=== PATIENT | female | born 1970 | race African-American/Black ===

== ENCOUNTER → 2020-01-29 13:39 | Outpatient (CLI) | payer BC, SELFPAY ==
--- NOTE | ~2020-01-29 | MM_ITS ---
EXAMINATION: MM screening [facility] BI w angelica HISTORY: Screening mammogram TECHNIQUE: Craniocaudal and mediolateral oblique 3-D tomosynthesis images were obtained and synthetic 2-D images were generated. CAD analysis was submitted and interpreted. COMPARISON: 01/19/2019, 01/20/2018, 07/29/2017 BREAST PARENCHYMAL COMPOSITION: There are scattered areas of fibroglandular density. FINDINGS: There is no evidence of suspicious mass, calcification, or architectural distortion to sugg est malignancy in either breast. There has been no suspicious interval change. IMPRESSION: 1. No mammographic evidence of malignancy. 2. Recommend routine screening mammography in one year. BI-RADS Category 1: Negative Reviewed, dictated and finalized at location A. ERLESS GRINDING MACHINE ADJUSTER
== END ==
PROVIDERS: Visit Provider Nurse Practitioner
DX: Z12.31 Encounter for screening mammogram for malignant neoplasm of breast (principal)
CPT/HCPCS: 77063; 77067

== ENCOUNTER → 2021-03-27 13:08 | Outpatient (CLI) | payer BC, SELFPAY ==
--- NOTE | ~2021-03-27 | MM_ITS ---
EXAMINATION: MM screening [facility] BI w angelica HISTORY: Screening TECHNIQUE: Craniocaudal and mediolateral oblique 3-D tomosynthesis images were obtained and synthetic 2-D images were generated. CAD analysis was submitted and interpreted. COMPARISON: Comparison to multiple prior studies sequentially, with oldest reviewed study dated 12/10. BREAST PARENCHYMAL COMPOSITION: Breast composed of scattered areas of fibroglandular density FINDINGS: There is no evidence of suspicious mass, calcification, or architectural distortion to sugg est malignancy in either breast. There has been no suspicious interval change. IMPRESSION: 1. No mammographic evidence of malignancy. 2. Recommend routine screening mammography in one year. BI-RADS Category 1: Negative Reviewed, dictated and finalized at location B. VIORAL HEALTH PROFESSIONAL
== END ==
PROVIDERS: Visit Provider Obstetrics & Gynecology Gynecology
DX: Z12.31 Encounter for screening mammogram for malignant neoplasm of breast (principal)
CPT/HCPCS: 77063; 77067

== ENCOUNTER → 2022-04-03 14:47 | Outpatient (CLI) | payer BC, SELFPAY ==
--- NOTE | ~2022-04-03 | MM_ITS ---
EXAMINATION: MM screening [facility] BI w angelica HISTORY: Screening mammogram TECHNIQUE: Craniocaudal and mediolateral oblique 3-D tomosynthesis images were obtained and synthetic 2-D images were generated. CAD analysis was submitted and interpreted. COMPARISON: 03/27/2021, 01/29/2020, 01/19/2019 bilateral screening mammogram examinations BREAST PARENCHYMAL COMPOSITION: There are scattered areas of fibroglandular density. FINDINGS: There is no evidence of suspicious mass, calcification, or architectural distortion to sugg est malignancy in either breast. There has been no suspicious interval change. IMPRESSION: 1. No mammographic evidence of malignancy. 2. Recommend routine screening mammography in one year. BI-RADS Category 1: Negative Reviewed, dictated and finalized at location A. WORKER
== END ==
PROVIDERS: PCP Family Medicine; Visit Provider Obstetrics & Gynecology Gynecology
DX: Z12.31 Encounter for screening mammogram for malignant neoplasm of breast (principal)
CPT/HCPCS: 77063; 77067

== ENCOUNTER → 2023-04-29 15:18 | Outpatient (CLI) | payer BC, SELFPAY ==
--- NOTE | ~2023-04-29 | MM_ITS ---
EXAMINATION: MM screening [facility] BI w angelica HISTORY: Screening TECHNIQUE: Craniocaudal and mediolateral oblique 3-D tomosynthesis images were obtained and synthetic 2-D images were generated. CAD analysis was submitted and interpreted. COMPARISON: Comparison to multiple prior studies sequentially, with oldest reviewed study dated 01/09. BREAST PARENCHYMAL COMPOSITION: There are scattered areas of fibroglandular density. FINDINGS: There is no evidence of suspicious mass, calcification, or architectural distortion to sugg est malignancy in either breast. There has been no suspicious interval change. IMPRESSION: 1. No mammographic evidence of malignancy. 2. Recommend routine screening mammography in one year. BI-RADS Category 1: Negative Reviewed, dictated and finalized at location A. CLING OPERATIONS MANAGER
== END ==
PROVIDERS: PCP Nurse Practitioner; Visit Provider Nurse Practitioner
DX: Z12.31 Encounter for screening mammogram for malignant neoplasm of breast (principal)
CPT/HCPCS: 77063; 77067

== ENCOUNTER 2024-06-03 08:49 | Outpatient (CLI) | payer BC, SELFPAY ==
--- NOTE | ~2024-06-03 | MM_ITS ---
EXAMINATION: MM screening [facility] BI w angelica HISTORY: Screening TECHNIQUE: Craniocaudal and mediolateral oblique 3-D tomosynthesis images were obtained and synthetic 2-D images were generated. CAD analysis was submitted and interpreted. COMPARISON: 04/29/2023 and dating back to 01/29/2020 BREAST PARENCHYMAL COMPOSITION: There are scattered areas of fibroglandular density. FINDINGS: Punctate calcifications are detected bilaterally, stable and benign in appearance. Stable parenchymal pattern without suspicious microcalcifications, architectural distortion, discrete masses or significant asymmetry. IMPRESSION: 1. No mammographic evidence of malignancy. 2. Recommend routine screening mammography in one year. BI-RADS Category 2: Benign finding(s). Reviewed, dictated and finalized at location A.
== END 2024-06-03 08:50 | disposition home or self-care (01) ==
LOC: MICIMG 08:52
PROVIDERS: Visit Provider Nurse Practitioner
DX: Z12.31 Encounter for screening mammogram for malignant neoplasm of breast (principal)
CPT/HCPCS: 77063; 77067

== ENCOUNTER 2024-08-27 12:34 | Outpatient (CLI) | payer BC, SELFPAY ==
--- NOTE | ~2024-08-27 | XR_ITS ---
XR abdomen/kub 1V Ordering provider: Kelsey Ramos MD History: . Verify IUD . Comparison: None. FINDINGS: BOWEL: Nonobstructive bowel gas pattern. ORGANOMEGALY: None. SIGNIFICANT PATHOLOGIC CALCIFICATIONS: None. OTHER: No free air is seen under the diaphragm. Degenerative maceration spine. IUD is seen in the [place] silverio. IMPRESSION: NO ACUTE ABDOMINAL FINDINGS. Reviewed, dictated and finalized at location A.
== END 2024-08-27 12:35 | disposition home or self-care (01) ==
LOC: MICIMG 12:38
PROVIDERS: PCP Obstetrics & Gynecology Gynecology; Visit Provider Obstetrics & Gynecology Gynecology
DX: T83.32XA Displacement of intrauterine contraceptive device, initial encounter (principal)
CPT/HCPCS: 74018

== ENCOUNTER 2024-09-02 15:33 | Outpatient (CLI) | payer BC, SELFPAY ==
--- NOTE | ~2024-09-02 | US_ITS ---
EXAM: PELVIC ULTRASOUND HISTORY: Displacement of intrauterine contraceptive device, initial e COMPARISON: None. FINDINGS: UTERUS: 8.8 x 4.1 x 5.7 cm. Multiple fibroids are identified. The uterus is anteverted and anteflexed. The endometrial complex measures 7 mm. Intrauterine device identified in position within the endometrial complex. Shadowing calcifications within the myometrium. RIGHT OVARY: Despite prolonged interrogation, the right ovary was not visualized LEFT OVARY: Despite prolonged interrogation, the left ovary was not visualized No free fluid is identified within the pelvis. IMPRESSION: Fibroid uterus. Intrauterine device in good position within the endometrial complex Reviewed, dictated and finalized at location A.
== END 2024-09-02 15:34 | disposition home or self-care (01) ==
PROVIDERS: Visit Provider Obstetrics & Gynecology Gynecology
DX: T83.32XA Displacement of intrauterine contraceptive device, initial encounter (principal); D25.9 Leiomyoma of uterus, unspecified
CPT/HCPCS: 76830

== ENCOUNTER 2024-09-14 01:14 | Day surgery (SDC) | payer BC, SELFPAY ==
[2024-09-09 15:13] VITALS: BMI 34.9
--- NOTE | 2024-09-09 15:22 | PC.NURSE ---
Report to the Outpatient Waiting Room, entrance under the green pavilion located off [facility], at time _0745_ on date _[id number]_. Planned Procedure Time: _0945_.? Time changes happen often and if your time is changed the preop area will call you the afternoon before. - You and your visitor will be asked to self-screen and do not enter if you have any COVID symptoms. Please call surgeon if you need to reschedule. - A mask is optional within the hospital at this time. Patients may have clear liquids (water, carbonated beverages, clear teas, apple juice) until 3 hours prior to surgery with a maximum of 20 ounces. - No food from midnight until time of surgery and no smoking, or chewing tobacco (or any form of nicotine). No chewing gum, candy or mints. Take only the following medications with a SIP of water on the morning of surgery: ___Amlodipine____ DO NOT STOP ANY OF YOUR OTHER PRESCRIPTION MEDICATIONS PRIOR TO SURGERY EXCEPT THE FOLLOWING Hold all vitamins and supplements for 3 days per anesthesiologist. Medications to discontinue per physician Date to take last [id number] Please no make-up, nail barbadian, hairspray, perfume, deodorant, or body powder the day of surgery.? No jewelry (including any body piercings) or valuables the day of surgery, leave them at home.? Please take a shower or bath the night before, or the morning of, surgery with an antibacterial soap.? Wear comfortable, loose fitting clothing.? - Jewelry must be removed prior to entering the operating room.? Rings and piercings that are not removed may be cut off. - The hospital will not accept responsibility for valuables.? - Please leave all valuables, including medications, at home the day of surgery. If you are going home after surgery, a licensed automobile drivers must drive you home.? - NO public transportation without another adult if you receive anesthesia. - We recommend that an adult stay with you for 24 hours following discharge. - We also recommend that you do not drive, make important decision, drink alcoholic beverages, or take any drugs that were not prescribed by your health care provider for at least 24 hours after your discharge time. Follow any additional instructions given to you from your surgeon. Telephone instructions given to __Jocelyn___and asked if any additional questions and then verbalized understanding. Patient advised to call surgeon office or pre surgery nurse liaison [phone] if any additional questions.
--- OUTSIDE RECORDS SUMMARY | 2024-09-14 01:17 | XMS_ITS | Clinical Summary ---
Author Organization [facility] Address [address] [facility] [place] [address] Phone Care Team Providers Care Jewelry Making Instructor Name Role Phone Unavailable Primary Care Provider Unavailabl e Encounters Date Type Department Care Team Description 08/25/2024 External Device Data ST[facility] ABSTRACTION Provider, Abstract 07/30/2024 External Device Data ST[facility] ABSTRACTION Provider, Abstract 07/29/2024 External Device Data [facility] ABSTRACTION Provider, Abstract 07/28/2024 External Device Data ST[facility] ABSTRACTION Provider, Abstract 07/14/2024 External Device Data ST[facility] ABSTRACTION Provider, Abstract from Last 3 Months Social History Tobacco Use Types Packs/Day Years Used Date Smoking Tobacco: Never Assessed Comments Unknown Sex and Gender Information Value Date Recorded Sex Assigned at Not on file Legal 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 Gender Identity Not on file Sexual Orientation Not on file Plan of Treatment Health Maintenance Due Date Last Done Comments DTAP/TDAP/TD VACCINES (1 - Tdap) 1988 HEPATITIS B VACCINES (1 of 3 - 19+ 3-dose series) 06/1988 HPV/Cotest (21-29) 1990 CERVICAL CANCER SCREENING 10/13/1999 HPV/Cotest (30-65) 10/13/1999 PAP SMEAR 10/13/1999 BREAST CANCER SCREENING 2009 COLORECTAL SCREENING 2014 Colorectal Cancer Screening 2014 FIT-DNA Q 3 years 2014 FIT/FOBT Q 1 year 2014 Flex Sig/CT Colonography Q 5 years 2014 ZOSTER VACCINE (1 of 2) 10/13/2019 INFLUENZA VACCINE (#1) 2024 Insurance RX [facility] [employer] Commercial
--- OUTSIDE RECORDS SUMMARY | 2024-09-14 01:17 | XMS_ITS | Clinical Summary ---
Author Organization [facility] Address [address] [place] [address] Care Team Providers Care Lead Sprinkler Name Role Phone Kelsey Ramos MD Unavailable [phone] Derek Goodrich MD Primary Care Provide r Source Comments [facility],non-owned Affiliates and Associated Physician Practices is amultiple site organization consisting of ambulatory clinics and hospital sitesin [place], [place], [place] and [place]. This disclosure is being madepursuant to the Care Everywhere program and may not contain all information available regarding this patient. Last updated 17.[facility] Allergies No known active allergies Medications * Be aware that medications may not be up to date on this document. Alwaysverify current medications with the patient. amlodipine-vals carmen-hctz (EXFORGE HCT) 5-160-12.5 MG tablet Take 1 Tab by mouth once daily. Active drospirenone-et hinyl estradiol (GIANVI) 3-0.02 MG tablet Take 1 Tab by mouth once daily. Active metFORMIN ER 24hr (GLUCOPHAGE XR) 500 MG tablet TAKE FOUR TABLETS BY MOUTH DAILY WITH DINNER 120 Tab 0 10/03/2015 Active Active Problems Problem Noted Date Diagnosed Date Goiter 02/08/2014 Obesity (BMI 30.0-34.9) 11/05/2012 Insulin resistance 11/05/2012 Hypothyroidism 07/23/2012 Family History Medical History Relation Name Comments Schizophrenia Brother 1 Hypertension Brother 2 ESRD/ heart NOS Cancer - Other Father throat CA/ ESRD Hypertension Father throat CA/ ESRD Diabetes Mother Hypertension Mother CVA<55(male) Neg Hx CVA<65(female) Neg Hx PR<55(male) Neg Hx PR<65(female) Neg Hx Osteoporosis Neg Hx Thyroid Disease Neg Hx Relation Name Status Comments Brother 1 Alive Brother 2 Alive Father throat CA/ ESRD Mother Alive Social History Tobacco Use Types Packs/Day Years Used Date Smoking Tobacco: Never Alcohol Use Standard Drinks/Week Comments No 0.8 (1 standard drink = 0.6 oz p ure alcohol) Comments Unknown Sex and Gender Information Value Date Recorded Sex Assigned at Female 03/30/2020 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 Legal Sex Female 4:32 PM CHEESE FACTORY WORKER Gender Identity Not on file Sexual Orientation Not on file Last Filed Vital Signs Vital Sign Reading Time Taken Comments Blood Pressure 134/90 12/20/2014 1:25 PM CDT Pulse 88 12/20/2014 1:25 PM CDT Temperature - - Respiratory Rate 18 02/08/2014 9:32 AM CHEESE FACTORY WORKER Oxygen Saturation - - Inhaled Oxygen Concentration - - Weight 84.8 kg (187 lb) 12/20/2014 1:25 PM CDT Height 157.5 cm (5' 2) 12/20/2014 1:25 PM CDT Body Mass Index 34.2 12/20/2014 1:25 PM CDT Plan of Treatment Health Maintenance Due Date Last Done Comments COLOGUARD (AGES 45-75) - COL ON CA SCREENING 1969 COLON MONITORING 1969 COLONOSCOPY - COLON CA SCREENING 1969 CT COLONOGRAPHY - COLON CA SCREENING 1969 Colorectal Cancer Screening 1969 FIT - COLON CA SCREENING 1969 FLEX SIG - COLON CA SCREENING 1969 LIPID TESTING 1969 MAMMOGRAM 1969 HIV SCREENING 1984 HEPATITIS C SCREENING 10/08/1987 DTAP/TDAP/TD VACCINES (1 - Tdap) 1988 HEPATITIS B VACCINE (1 of 3 - 19+ 3-dose series) 1988 PNEUMOCOCCAL VACCINE 50+ (1 of 1 - PCV) 10/13/2019 ZOSTER VACCINE (1 of 2) 10/13/2019 COVID-19 VACCINE (2023-2 5 season) 2023 DEPRESSION SCREENING 03/11/2024 INFLUENZA VACCINE (Season Ended) 2024 HIB VACCINE Aged Out No longer eligi ble based on patient's age to complete this topic HPV VACCINE Aged Out No longer eligi ble based on patient's age to complete this topic MENINGOCOCCAL (Group B) VACC INE SHARED DECISION-MAKING Aged Out No longer eligibl e based on patient's age to complete this topic MENINGOCOCCAL GROUPS A/C/Y/W VACCINE Aged Out No longer eligible b ased on patient's age to complete this topic Insurance [facility] [place] [address] [facility] Care Teams Lead Sprinkler Relationship Specialty [place] [address] [place] [address] PCP - General Family Medicine 04/08/20 Kelsey Ramos MD [address] [place] [id number] Obstetrics and Gynecology 12/20/14
--- OUTSIDE RECORDS SUMMARY | 2024-09-14 01:17 | XMS_ITS | Encounter Summary ---
Author Organization [facility] Address [address] [place] [address] Care Team Providers Care Melt House Supervisor Name Role Phone Unavailable Primary Care Provider Unavailabl e Encounter Details Date Type Department Care Team (Late st Contact Info) Description 03/07/1999 Outpatient Historical [facility] Betito Mcdaniels MD [address] [place] [phone] Social History Tobacco Use Types Packs/Day Years Used Date Smoking Tobacco: Never Assessed Comments Unknown Sex and Gender Information Value Date Recorded Sex Assigned at Not on file Legal Sex Female 3:47 AM ART CONSULTANT Gender Identity Not on file Sexual Orientation Not on file documented as of this encounter Plan of Treatment Not on file documented as of this encounter Visit Diagnoses Not on filedocumented in this encounter
--- OUTSIDE RECORDS SUMMARY | 2024-09-14 01:17 | XMS_ITS | Encounter Summary ---
Author Organization [facility] Address 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
--- OUTSIDE RECORDS SUMMARY | 2024-09-14 01:17 | XMS_ITS | Encounter Summary ---
Author Organization [facility] Address 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
--- OUTSIDE RECORDS SUMMARY | 2024-09-14 01:17 | XMS_ITS | Clinical Summary ---
Author Organization [facility] Address [address] [place] [address] Phone Care Team Providers Care Digital Circuit Designer Name Role Phone Unavailable Primary Care Provider Unavailabl e Allergies No known active allergies Medications ferrous sulfate 325 (65 Fe) MG EC tablet Take 325 mg by mouth every other day Active fluticasone (FLONASE) 50 MCG/ACT nasal spray Administer 1 spray into each nostril if needed Shake gently. Before first use, prime pump. After use, clean tip and replace cap. Active Multiple Vitamin (multivitamin) tablet Take 1 tablet by mouth in the morning and 1 tablet in the evening. Active chlorthalidone (HYGROTON) 50 MG tablet Take 100 mg by mouth 1 (one) time each day Active Semaglutide-We ight Management (Wegovy) 0.25 MG/0.5ML solution auto-injector Inject under the skin per week Active JANET PO Take 665 mg by mouth Active Lutein-Zeaxant hin (OCUVITE LUTEIN 25 PO) Take 1 tablet by mouth Active BERBERINE CHLORIDE PO Take 550 mg by mouth Active Docusate Sodium (COLACE PO) Take 2 capsules by mouth Active amLODIPine (NORVASC) 5 MG tablet TAKE 1 TABLET BY MOUTH EVERY DAY 90 tablet 1 09/01/19 25 Active amLODIPine (NORVASC) 5 MG tablet TAKE 1 TABLET BY MOUTH 1 TIME EACH DAY. 90 tablet 1 02/28/20 24 025 Discontinued Active Problems Problem Noted Date Diagnosed Date Other hyperlipidemia 01/08/2024 Hypokalemia 01/08/2024 Essential hypertension 11/28/2022 Resolved Problems Problem Noted Date Diagnosed Date Resolved Date Mixed hyperlipidemia 11/28/2022 024 Acquired hypothyroidism 11/28/202212/10 Vitamin D deficiency 11/28/2022 024 Encounters Date Type Department Care Team Description 08/30/2024 Refill [facility] [address] [facility] [address] [place] [address] Thanh Barreto MD from Last 3 Months Family History Medical History Relation Comments Renal dialysis Brother Renal dialysis Father Kidney disease Mother Kidney disease Other Relation Status Comments Brother Father Mother Other Social History Tobacco Use Types Packs/Day Years Used Date Smoking Tobacco: Never Assessed Comments Unknown Sex and Gender Information Value Date Recorded Sex Assigned at Not on file Legal Sex Female 11:45 AM MDT Gender Identity Not on file Sexual Orientation Not on file Last Filed Vital Signs Vital Sign Reading Time Taken Comments Blood Pressure 124/85 01/08/2024 4:07 PM CDT Pulse 70 01/08/2024 4:07 PM CDT Temperature - - Respiratory Rate - - Oxygen Saturation - - Inhaled Oxygen Concentration - - Weight 83 kg (183 lb) 01/08/2024 4:07 PM CDT Height 157.5 cm (5' 2) 01/08/2024 4:07 PM CDT Body Mass Index 33.47 01/08/2024 4:07 PM CDT Plan of Treatment Upcoming Encounters Date Type Department Care Team ([facility] st Contact Info) Description 01/06/2025 4:40 PM CDT Office Visit [facility] [address] [facility] [address] [place], [place] [id number] [place] [address] [place] [id number] Health Maintenance Due Date Last Done Comments Pneumococcal PPSV23 Highest Risk Adult (1 of 3 - PCV13) 1988 Influenza Vaccine (#1) 2024 2, 12/03/2021, 12/09/2020, Additional history exists Insurance [facility]
--- OUTSIDE RECORDS SUMMARY | 2024-09-14 01:17 | XMS_ITS | Encounter Summary ---
Author Organization [facility] Address 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
--- OUTSIDE RECORDS SUMMARY | 2024-09-14 01:17 | XMS_ITS | Clinical Summary ---
Author Organization [facility] Address [address] [place] [address] Care Team Providers Care Weight Analyst Name Role Phone Derek Goodrich MD Primary Care Provide r Kelsey Ramos MD Unavailable [phone] Raul Kate MD Unavailable [phone] Thanh Barreto MD Unavailable [phone] Lata Carrillo NP Unavailable [phone] Allergies No known active allergies Medications levonorgestrel (GLEN) 14 mcg/24 hour (3 years) IUDIndications:P regnancy Contraception 1 each by intrauterine route once Active lutein-zeaxanthi n 25-5 mg capsuleIndicatio ns:eye health Take 1 tablet by mouth Saturday -Saturday Active amLODIPine (NORVASC) 5 mg tablet TAKE 1 TABLET BY MOUTH 1 TIME EACH DAY. 024 Active fluticasone propionate (FLONASE) 50 mcg/actuation nasal spray Administer 2 sprays into each nostril daily as needed for allergies 48 mL 3 024 Active ferrous sulfate 325 mg (65 mg of elemental iron) tablet Take 1 tablet (325 mg total) by mouth daily with breakfast 90 tablet 3 024 Active multivitamin tabletIndication s:Vitamin Deficiency Prevention Take 1 tablet by mouth 2 (two) times a day 720 tablet 024 2024 Active progesterone (PROMETRIUM) 200 mg capsule Active estradioL (VIVELLE-DOT) 0.05 mg/24 hr 025 Active ALPRAZolam (XANAX) 2 mg tablet BRING WITH YOU TO OFFICE AND WILL BE INSTRUCTED TO TAKE IN OFFICE ONE HOUR PRIOR TO PROCEDURE 025 Active fexofenadine (NAFISA) 180 mg tablet Take 1 tablet (180 mg total) by mouth daily as needed (allergies) 90 tablet 4 025 Active albuterol HFA (PROVENTIL HFA,VENTOLIN HFA,PROAIR HFA) 90 mcg/actuation inhaler INHALE 2 PUFFS EVERY 4 TO 6 HOURS NEEDED FOR WHEEZING 18 each 5 025 Active chlorthalidone (HYGROTON) 50 mg tablet TAKE 2 TABLETS BY MOUTH EVERY DAY 180 tablet 3 025 Active chlorthalidone (HYGROTON) 50 mg tablet TAKE 2 TABLETS BY MOUTH EVERY DAY 180 tablet 3 024 2024 Discontinued Active Problems Problem Noted Date Diagnosed Date High serum ferritin 08/24/2024 Peripheral vertigo involving right ear 3 Assessment & Plan (05/29/2022 7:54 PM CDT): This seems to be improved. I recommended watchful waiting. I told her to watch her salt intake. We talked about further management with medication but decided to see how things go. She is going to follow up with me if she has any significant symptoms. 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 I talked with her about that. I recommended salt avoidance and I am going to have her take a steroid pack. I would like her to return in about 4 weeks and repeat an audiogram at that time. We talked quite a bit about Meniere's disease. Right now if she has this her symptoms are mild and may not require aggressive treatment I explained. Sensorineural hearing loss ( SNHL) of right ear with unrestricted hearing of left ear 04/25/2022 Assessment & Plan (05/29/2022 7:55 PM CDT): This has improved. I suspect she is dealing with Meniere's disease and we talked about that. I am recommending taking a wait and see approach but if she has any significant exacerbation of her symptoms I told her to let me know. She understands and is agreeable with that. Assessment & Plan (04/25/2022 8:43 PM MEDICAL RECORD TECHNICIAN): I also reviewed her hearing test with her. It does show a low-frequency sensorineural hearing loss on the right. This would be consistent with hydrops. I discussed further evaluation if she does not improve. That might include an MRI scan and/or VNG. She understands that as well. She will follow-up in 4 weeks. Nutritional counseling 12/01/2020 Gastroesophageal reflux disease 07/20/2020 Overview (07/20/2020): Added automatically from request for surgery [id number] Assessment & Plan (06/23/2024 10:45 PM CDT): Controlled/stable, continue current management Diet-controlled Vitamin D deficiency 07/24/2018 Assessment & Plan (06/23/2024 10:44 PM CDT): Controlled/stable, continue current management Replace as needed Assessment & Plan (12/24/2023 8:52 AM CDT): Controlled/stable, continue current management Replace as needed Vitamin B12 deficiency 07/24/2018 Assessment & Plan (06/23/2024 10:44 PM CDT): Controlled/stable, continue current management Replace as needed Assessment & Plan (12/24/2023 8:52 AM CDT): Controlled/stable, continue current management Replace as needed Exercise-induced asthma 07/17/2017 Assessment & Plan (06/23/2024 10:45 PM CDT): Controlled/stable, continue current management Albuterol PRN Assessment & Plan (12/24/2023 8:52 AM CDT): Controlled/stable, continue current management Albuterol PRN Essential hypertension 03/28/2016 Overview (06/15/2016): Hypertension Assessment & Plan (06/23/2024 10:47 PM CDT): BP Readings from Last 3 Encounters: 06/23/24 134/89 12/23/23 122/86 05/15/23 114/82 Controlled/stable, continue current management Continue amlodipine, chlorthalidone Follow-up with Nephrology Assessment & Plan (12/24/2023 8:51 AM CDT): BP Readings from Last 3 Encounters: 12/23/23 122/86 05/15/23 114/82 03/14/23 133/90 Controlled/stable, continue current management Continue amlodipine, chlorthalidone Hyperlipidemia 03/28/2016 Overview (06/15/2016): Hyperlipidemia Assessment & Plan (06/23/2024 10:44 PM CDT): The 10-year ASCVD risk score (Geneva MCCLOUD, et al., 2019) is: 5% Values used to calculate the score: Age: 53 years Sex: Female Is Non- : Yes Diabetic: No Tobacco smoker: No Systolic Blood Pressure: 134 mmHg Is BP treated: Yes HDL Cholesterol: 61 mg/dL Total Cholesterol: 208 mg/dL ASCVD risk below statin threshold Monitor Assessment & Plan (12/24/2023 8:51 AM CDT): The 10-year ASCVD risk score (Geneva MCCLOUD, et al., 2019) is: 4.6% Values used to calculate the score: Age: 53 years Sex: Female Is Non- : Yes Diabetic: No Tobacco smoker: No Systolic Blood Pressure: 122 mmHg Is BP treated: Yes HDL Cholesterol: 52 mg/dL Total Cholesterol: 226 mg/dL ASCVD risk below statin threshold Monitor Impaired fasting glucose 03/28/2016 Overview (06/15/2016): Impaired fasting glucose Assessment & Plan (06/23/2024 10:44 PM CDT): Lab Results Component Value Date HGBA1C 5.6 06/23/2024 Stable - monitor Focus on therapeutic lifestyle changes - diet/exercise - to maintain normal sugar levels and prevent progression to diabetes Assessment & Plan (12/24/2023 8:51 AM CDT): Lab Results Component Value Date HGBA1C 5.8 (H) 03/14/2023 Stable - monitor Focus on therapeutic lifestyle changes - diet/exercise - to maintain normal sugar levels and prevent progression to diabetes Goiter 02/08/2014 Assessment & Plan (06/23/2024 10:44 PM CDT): Clinically stable Monitor Consider repeat ultrasound if enlarging or symptomatic Assessment & Plan (12/24/2023 8:51 AM CDT): Clinically stable Monitor Consider repeat ultrasound if enlarging or symptomatic Obesity (BMI 30.0-34.9) 11/05/2012 Assessment & Plan (12/24/2023 8:52 AM CDT): BMI Follow-up includes: education provided. Continue Wegovy - increase dose as tolerated Resolved Problems Problem Noted Date Diagnosed Date Resolved Date Morbid obesity due to excess calories 02/28/2021 03/08/2022 No diagnosis on [place] 08/04/202012/22 Morbid obesity (CMS/HCC) 07/20/2020 Abnormal mammogram of right breast 01/20/2018 01/26/2019 Overview (01/20/2018): 01/16/17 - needs 6 month follow-up Iron deficiency anemia 03/28/201607/17 Overview (06/15/2016): Iron deficiency anemia Insulin resistance 11/05/2012 8 Acquired hypothyroidism 07/23/201212/09 Encounters Date Type Department Care Team Description 09/03/2024 Orders Only [facility] [address] [phone] ProviderLyndsay MD 08/24/2024 Results Follow-Up [facility] [address] [phone] Derek Goodrich MD Thyroid Function Bailey, Hemoglobin A1c, Hepatitis C antibody Blood, Additional followed-up results: 15 06/23/2024 4:15 PM CDT Lab [address] [address] Annual physical exam; Goiter; Acquired hypothyroidism; S/P bariatric surgery; Impaired fasting glucose; Vitamin D deficiency; Special screening examination for viral disease; Essential hypertension; Mixed hyperlipidemia 06/23/2024 3:30 PM CDT Office Visit [facility] [address] [phone] Derek Goodrich MD Annual physical exam (Primary Dx); Essential hypertension; Mixed hyperlipidemia; Impaired fasting glucose; Goiter; Vitamin D deficiency; Vitamin B12 deficiency; Gastroesophageal reflux disease, unspecified whether esophagitis present; Exercise-induced asthma; IUD (intrauterine device) in place; Hormone replacement therapy; Special screening examination for viral disease; S/P bariatric surgery; Subacute cough; Allergic conjunctivitis of both eyes 06/22/2024 Orders Only [facility] [address] [phone] Derek Goodrich MD from Last 3 Months Immunizations Immunization Administration Dates Next Due Influenza, Quadrivalent, Tere l Culture-based MDCK, Preservative Free, Antibiotic Free, Intramuscular 11/14/2022 Influenza, Quadrivalent, Spl it, Preservative Free, Intradermal 12/19/2015 Influenza, Quadrivalent, Spl it, Preservative Free, Intramuscular 12/03/2021,11/26/2020,12/03/2019 Influenza, Split 12/09/2021 Influenza, Trivalent, Cell Culture-based MDCK, Preservative Free, Antibiotic Free, Intramuscular 12/17/2023,11/14/2022 Influenza, Unspecified 12/09/2020,2018,12/09/2018,12/09,12/09/2017,12/18/2016,12/18/2016 Pfizer SARS-CoV-2 Monovalent Vaccination (12+ Yrs) PURPLE 12/29/2020,05/17/2020,04/26/2020 Pfizer Sars-Cov-2 Bivalent V accination (12+ YRS) 11/14/2022,05/21/2022 Pneumococcal Conjugate Pcv20 05/09/2022 Sars-cov-2 Covid-19 Mrna, Bi valent, Original/omicron Ba.1 10/03/2023 Tdap 01/26/2019 ZOSTER Recombinant 02/06/2020,12/03/2019 Surgical History Surgery Date Site/Laterality Comments SECTION, CLASSIC REDUCTION MAMMAPLASTY COLONOSCOPY SLEEVE GASTROPLASTY 02/28/2021 BARIATRIC SURGERY 2020 Medical History Medical History Date Comments Insulin resistance 11/05/2012 Hypothyroidism 07/23/2012 Abnormal mammogram of right breast 01/20/2018 01/16/17 - needs 6 month follow-up Hypertension Anemia Morbid obesity (HCC) Asthma Vitamin D deficiency Prediabetes Allergic rhinitis Dizziness Acquired hypothyroidism 07/23/2012 No diagnosis on [place] I 08/04/2020 Family History Medical History Relation Name Comments Hypertension Brother Farrukh Boyce Kidney disease Brother Farrukh Boyce Cancer Father Mart Mitchell Hypertension Father Mart Mitchell Kidney disease Father Mart Mitchell Renal disease ; Obesity Father Mart Mitchell Arthritis Mother Gaston Mitchell Diabetes Mother Gaston Mitchell Diabetes type II Mother Gaston Mitchell Diabete s mellitus type 2; Hypertension Mother Gaston Mitchell Hypertensio n; Obesity Mother Gaston Mitchell Anesthesia problems Neg Hx Relation Name Status Comments Brother Farrukh Austen Father Mart Mitchell Mother Gaston Mitchell Social History Tobacco Use Types Packs/Day Years Used Date Smoking Tobacco: Never Smokeless Tobacco: Never Tobacco Cessation:Counseling Given: Not Answered Alcohol Use Standard Drinks/Week Comments Yes 0 (1 standard drink = 0.6 oz pur e alcohol) AUDIT-C Answer Date Recorded Q1: How often do you have a drink containing alc ohol? 2-4 times a month 02/28/2021 Q2: How many drinks containi ng alcohol do you have on a typical day when you are drinking? 1 or 2 02/28/2021 Q3: How often do you have si x or more drinks on one occasion? Never 02/28/2021 PHQ-2 Answer Date Recorded PHQ-2 Total Score (If total score is 3 or more points, staff should administer the PHQ-9) 0 12/23/2023 Comments No Sex and Gender Information Value Date Recorded Sex Assigned at Not on file Legal Sex Female 2:05 AM MEDICAL RECORD TECHNICIAN Gender Identity Female 02/27/2022 5:45 AM MEDICAL RECORD TECHNICIAN Sexual Orientation Straight 07/08/2020 8: 57 AM CDT Obstetrics History Last Filed Vital Signs Vital Sign Reading Time Taken Comments Blood Pressure 134/89 06/23/2024 3:25 PM CDT Pulse 80 06/23/2024 3:25 PM CDT Temperature 36.9 C (98.4 F) 05/01/2021 2:49 PM MEDICAL RECORD TECHNICIAN Respiratory Rate 18 05/29/2022 4:23 PM CDT Oxygen Saturation 97% 06/23/2024 3:25 PM CDT Inhaled Oxygen Concentration - - Weight 84.8 kg (187 lb) 06/23/2024 3:25 PM CDT Height 157.5 cm (5' 2.01) 06/23/2024 3:25 PM CD T Body Mass Index 34.19 06/23/2024 3:25 PM CDT Plan of Treatment Health Maintenance Due Date Last Done Comments Covid-19 Vaccine (2023- 5 season) 2023 10/03/2023, 10/03/2023, 11/14/2022, Additional history exists Influenza Vaccine (#1) 2024 , 11/14/2022, 11/14/2022, Additional history exists Depression Screening 12/22/2024 12/23/2023, 05/15/2023, 05/09/2022, Additional history exists Regular Well Visit/Exam 18-64 06/23/2025, 05/15/2023, 05/09/2022, Additional history exists Colon Cancer Screening-Colonoscopy 02/21/2026 02/22/2016 Cervical Cancer Screening 04/29/20262023, 03/27/2021, 12/28/2016 Breast Cancer Screening-Mammogram 06/03/2026 06/03/2024, 04/03/2022, 04/03/2022, Additional history exists DTaP/Tdap/Td Vaccine (2 - Td or Tdap) 01/26/2029 01/26/2019 Colon Cancer Screening-CT Colonography Discontinued 02/22/2016 Colon Cancer Screening-DNA Stool Discontinued 02/22/20 16 Colon Cancer Screening-FIT Discontinued 02/22/2016 Colon Cancer Screening-Sigmoidoscopy Discontinued 02/22/2016 Zoster Vaccine Completed 02/06/2020, 12/03/2019 Pneumococcal vaccine <65 Completed 05/09/2022 Hepatitis B Screening Completed 06/23/2024 Hepatitis C Screening Completed 06/23/2024 Procedures Procedure Name Priority Date/Time Associated Diagnosis Comments ULTRASOUND Schedule Routine, Read Routine (OP Routine) 09/02/2024 1:40 PM CDT DIFFERENTIAL AUTO Routine 06/23/2024 4:3 6 PM CDT Annual physical exam Essential hypertension S/P bariatric surgery CBC WITH AUTO DIFFERENTIAL Routine 06/23/2024 4:36 PM CDT Annual physical exam Essential hypertension S/P bariatric surgery HEMOGLOBIN A1C Routine 06/23/2024 4:36 PM CDT Annual physical exam S/P bariatric surgery EGFR Routine 06/23/2024 4:19 PM CDT Annual physical exam Essential hypertension S/P bariatric surgery VITAMIN D 25 HYDROXY Routine 06/23/2024 4:19 PM CDT Annual physical exam Essential hypertension S/P bariatric surgery COMPREHENSIVE METABOLIC PANEL Routine 06/23/2024 4:19 PM CDT Annual physical exam Essential hypertension S/P bariatric surgery FERRITIN Routine 06/23/2024 4:19 PM CDT Annual physical exam Essential hypertension S/P bariatric surgery FOLATE Routine 06/23/2024 4:19 PM CDT Annual physical exam Essential hypertension S/P bariatric surgery IRON PROFILE W/ IBC Routine 06/23/2024 4 :19 PM CDT Annual physical exam Essential hypertension S/P bariatric surgery LIPID PANEL Routine 06/23/2024 4:19 PM CDT Annual physical exam Essential hypertension Mixed hyperlipidemia S/P bariatric surgery PTH Routine 06/23/2024 4:19 PM CDT Annual physical exam Essential hypertension S/P bariatric surgery VITAMIN B1 Routine 06/23/2024 4:19 PM CDT Annual physical exam Essential hypertension S/P bariatric surgery VITAMIN B12 Routine 06/23/2024 4:19 PM CDT Annual physical exam Essential hypertension S/P bariatric surgery THYROID FUNCTION CASCADE Routine 06/23/2024 4:19 PM CDT Annual physical exam Goiter Acquired hypothyroidism S/P bariatric surgery HEPATITIS B SURFACE ANTIGEN Routine 06/23/2024 4:19 PM CDT Special screening examination for viral disease HEPATITIS B CORE ANTIBODY, TOTAL Routine 06/23/2024 4:19 PM CDT Special screening examination for viral disease HEPATITIS B SURFACE ANTIBODY (IMMUNE STATUS) Routine 06/23/2024 4:19 PM CDT Special screening examination for viral disease HEPATITIS C ANTIBODY Routine 06/23/2024 4:19 PM CDT Annual physical exam Impaired fasting glucose Vitamin D deficiency SCREENING MAMMOGRAM 2D BILATERAL Schedule Routine, Read Routine (OP Routine) 06/03/2024 GENITAL FLUID PAP SMEAR, THIN PREP WITH HPV EVALUATION Routine 04/29/2023 COLONOSCOPY REPORT 02/22/2016 from Last 3 Months or Most Recently Relevant to Health Maintenance Results * ULTRASOUND (09/02/2024 1:40 PM CDT) Anatomical Region Laterality Modality Ultrasound us Historical Provider MD RUVALCABA US PROCEDURES Final R esult * Differential, auto (06/23/2024 4:36 PM CDT) Neutrophil abs 2.91 1.50 - 6.50 K/cumm Imm gran abs 0.02 0.00 - 0.10 K/cumm [facility] Lymphocyte abs 1.95 0.80 - 3.30 K/cumm [facility] Monocyte abs 0.44 0.20 - 0.80 K/cumm [facility] Eosinophil abs 0.06 0.00 - 0.50 K/cumm [facility] Basophil abs 0.02 0.00 - 0.10 K/cumm [facility] Neutrophil pct 53.9 % [facility] Comment: Interpretive Data Percent cell count reference ranges are not reported, since discordance with absolute values may lead to misinterpretation of CBC data. Current Interpretive Data was last revised on 2017. Imm gran pct 0.4 % [facility] Comment: Interpretive Data Percent cell count reference ranges are not reported, since discordance with absolute values may lead to misinterpretation of CBC data. Current Interpretive Data was last revised on 2017. Lymphocyte pct 36.1 % [facility] Comment: Interpretive Data Percent cell count reference ranges are not reported, since discordance with absolute values may lead to misinterpretation of CBC data. Current Interpretive Data was last revised on 2017. Monocyte pct 8.1 % [facility] Comment: Interpretive Data Percent cell count reference ranges are not reported, since discordance with absolute values may lead to misinterpretation of CBC data. Current Interpretive Data was last revised on 2017. Eosinophil pct 1.1 % [facility] Comment: Interpretive Data Percent cell count reference ranges are not reported, since discordance with absolute values may lead to misinterpretation of CBC data. Current Interpretive Data was last revised on 2017. Basophil pct 0.4 % [facility] Comment: Interpretive Data Percent cell count reference ranges are not reported, since discordance with absolute values may lead to misinterpretation of CBC data. Current Interpretive Data was last revised on 2017. Blood 06/23/2024 4:36 PM CDT 06/23/2024 4:36 PM CDT Derek Goodrich MD LAB BLOOD ORDERABLES Final Result [facility] [address] [place] [address] * (ABNORMAL) CBC with auto differential (06/23/2024 4:36 PM CDT) WBC 5.40 3.80 - 9.90 K/cumm Hgb 12.1 11.9 - 15.5 g/dL [facility] Hct 38.5 35.6 - 45.5 % [facility] Plt 301 150 - 400 K/cumm [facility] MPV 9.6 9.1 - 12.3 fL [facility] RBC 4.63 3.90 - 5.20 M/cumm [facility] MCV 83.2 81.3 - 96.4 fL [facility] MCH 26.1(L) 27.1 - 33.3 pg [facility] MCHC 31.4(L) 32.3 - 35.7 g/dL [facility] RDW CV 15.9(H) 11.1 - 14.9 % [facility] RDW SD 47.9 35.7 - 48.1 fL [facility] NRBC abs 0.00 0.00 - 0.01 K/cumm [facility] Blood 06/23/2024 4:36 PM CDT 06/23/2024 4:36 PM CDT Derek Goodrich MD LAB BLOOD ORDERABLES Final Result [facility] [address] [place] [address] * Hemoglobin A1c (06/23/2024 4:36 PM CDT) Hgb A1C 5.6 4.0 - 5.6 % Estimated Average Glucose 114 mg/dL [facility] Comment: The ADA recommends reporting an estimated Average Glucose (eAG) with all Hemoglobin A1c results using the equation derived from a study of 507 normal and diabetic adults. Minority populations were underrepresented and children were not included. (Diabetes Care 31:0977-2755, 2008). The eAG is not equivalent to a fasting glucose. Blood 06/23/2024 4:36 PM CDT 06/23/2024 4:36 PM CDT Derek Goodrich MD LAB BLOOD ORDERABLES Final Result Performing Organization Address [facility] Co de Phone Number [facility] [address] [place] [address] * eGFR (06/23/2024 4:19 PM CDT) eGFR >90 >=60 mL/min/1. 73 m2 Comment: Interpretive Data Reference Interval Normal >/= 90 mL/min/1.73m2 Mildly decreased* 60 - 89 mL/min/1.73m2 Mildly to moderately decreased 45 - 59 mL/min/1.73m2 Moderately to severely decreased 30 - 44 mL/min/1.73m2 Severely decreased 15 - 29 mL/min/1.73m2 Kidney Failure < 15 mL/min/1.73m2 *Relative to young adult level Estimated glomerular filtration rate is determined by the 2020 CKD-EPI equation recommended by the National Kidney Foundation (A Unifying Approach to GFR Estimation: Recommendations of the NKF-ASK Task Force on Reassessing the Inclusion of Race in Diagnosing Kidney Disease, JASN 2020). The CKD-EPI equation should not be used for patients with unstable renal function and has not been validated in children and those over 70. Current interpretive data was last reviewed 2021. Blood 06/23/2024 4:19 PM CDT 06/23/2024 4:29 PM CDT Derek Goodrich MD LAB BLOOD ORDERABLES Final Result Performing Organization Address [facility] Co de Phone Number [facility] [address] [facility] [place], [place] [id number] * Thyroid Function Bailey (06/23/2024 4:19 PM CDT) [facility] TSH 1.23 0.30 - 4.20 mcIUnit/mL Blood 06/23/2024 4:19 PM CDT 06/23/2024 4:29 PM CDT Derek Goodrich MD LAB BLOOD ORDERABLES Final Result Performing Organization Address [facility]/ZIP Co de Phone Number [facility] [address] [place] [address] * Iron profile w/ IBC (06/23/2024 4:19 PM CDT) [facility] Iron 77 35 - 145 mcg/dl TIBC 293 250 - 400 mcg/dL [facility] Transferrin saturation 26 20 - 50 % [facility] Blood 06/23/2024 4:19 PM CDT 06/23/2024 4:29 PM CDT Derek Goodrich MD LAB BLOOD ORDERABLES Final Result Performing Organization Address [facility] de Phone Number [facility] [address] [place] [address] * Hepatitis C antibody Blood (06/23/2024 4:19 PM CDT) [facility] Hep C Ab Nonreactive Nonreactive Comment: Interpretive Data Nonreactive: Antibodies to HCV not detected. Does NOT exclude the possibility of recent exposure to HCV. Equivocal: Equivocal for HCV antibodies. Supplemental molecular testing will be automatically performed to determine infection status in accordance with current CDC screening recommendations. Reactive: Positive for HCV antibodies. This may represent current or past HCV infection. Supplemental molecular testing will be automatically performed to determine current infection status in accordance with current CDC screening recommendations. Interpretive data was last revised on 2019. Blood 06/23/2024 4:19 PM CDT 06/23/2024 4:29 PM CDT Derek Goodrich MD LAB MICROBIOLOGY - GE NERAL ORDERABLES Final Result Performing Organization Address [facility] Co de Phone Number [facility] [address] [place] [address] * Hepatitis B core antibody, total Blood (06/23/2024 4:19 PM CDT) Hep B core IgG/IgM Nonreactive Nonreactive Comment:Testing performed by : [facility], [address] [place]., [address] Blood 06/23/2024 4:19 PM CDT 06/24/2024 10:04 AM CDT Derek Goodrich MD LAB MICROBIOLOGY - GE NERAL ORDERABLES Final Result Performing Organization Address [facility] Co de Phone Number [facility] [address] [place] [address] * Vitamin D 25 hydroxy (06/23/2024 4:19 PM CDT) Pathologist [facility] Vitamin D 25-OH 69 30 - 80 ng/mL Blood 06/23/2024 4:19 PM CDT 06/23/2024 4:29 PM CDT Derek Goodrich MD LAB BLOOD ORDERABLES Final Result Performing Organization Address [facility] Co de Phone Number [facility] [address] [place] [address] * Hepatitis B surface antibody (immune status) Blood (06/23/2024 4:19 PM CDT) Pathologist [facility] HBsAb (immune status) Reactive Comment: Interpretive Data Nonreactive: This result is consistent with a lack of immunity to Hepatitis B Virus when used in the setting of routine screening. Equivocal: The immune status of the individual should be further assessed, if appropriate, after consideration of clinical status, risk factors, and additional diagnostic information. Reactive: This result is consistent with immunity to Hepatitis B Virus when used in the setting of routine screening. Current interpretive data was last revised on 19. HBsAb (immune status) index 24.1 mIUnits/m L [facility] Blood 06/23/2024 4:19 PM CDT 06/23/2024 4:29 PM CDT Derek Goodrich MD LAB MICROBIOLOGY - GE NERAL ORDERABLES Final Result Performing Organization Address [facility] de Phone Number LUIS [phone] [address] [facility] [place] [address] * Hepatitis B Surface Antigen Blood (06/23/2024 4:19 PM CDT) Pathologist [facility] HepBsAg Nonreactive Nonreactive Blood 06/23/2024 4:19 PM CDT 06/23/2024 4:29 PM CDT Derek Goodrich MD LAB MICROBIOLOGY - NERAL ORDERABLES Final Result Performing Organization Address [facility] Phone Number LUIS [id number] [place] [address] * Vitamin B1 (06/23/2024 4:19 PM CDT) [facility] Thiamine (Vit B1) 126 70 - 180 nmol/L [facility] Lab Comment: ADDITIONAL INFORMATION This test was developed and its performance characteristics determined by [facility] in a manner consistent with CLIA requirements. This test has not been cleared or approved by the U.S. Food and Drug Administration. Test Performed by: [facility] - [address] [address] Business Law Professor: Shree De León Ph.D.; CLIA# [id number] Blood 06/23/2024 4:19 PM CDT 06/23/2024 4:31 PM CDT Derek Goodrich MD LAB BLOOD ORDERABLES Final Result LUIS SIU [address] [place] [address] [facility] * PTH (06/23/2024 4:19 PM CDT) PTH 26 15 - 65 pg/mL Blood 06/23/2024 4:19 PM CDT 06/23/2024 4:29 PM CDT us Derek Goodrich MD LAB BLOOD ORDERABLES Final Result Performing Organization Address [facility] Co de Phone Number LUIS SIU [address] [address] [place] [address] * Folate (06/23/2024 4:19 PM CDT) Pathologist [facility] Folic acid 9.4 >=5.0 ng/mL Comment:Hemolysis present. R esults may be affected. Blood 06/23/2024 4:19 PM CDT 06/23/2024 4:29 PM CDT us Derek Goodrich MD LAB BLOOD ORDERABLES Final Result Performing Organization Address City/[facility]/ZIP Co de Phone Number LUIS SIU [address] [address] [place] [address] * (ABNORMAL) Ferritin (06/23/2024 4:19 PM CDT) Pathologist [facility] Ferritin 301(H) 15 - 150 ng/mL Blood 06/23/2024 4:19 PM CDT 06/23/2024 4:29 PM CDT us Derek Goodrich MD LAB BLOOD ORDERABLES Final Result LUIS SIU [address] [address] [place] [address] * Vitamin B12 (06/23/2024 4:19 PM CDT) Vitamin B12 956 230 - 1,250 pg/mL Blood 06/23/2024 4:19 PM CDT 06/23/2024 4:29 PM CDT us Derek Goodrich MD LAB BLOOD ORDERABLES Final Result LUIS [address] [address] [facility] [place] [address] * (ABNORMAL) Lipid panel (06/23/2024 4:19 PM CDT) Cholesterol 208(H) 30 - 199 mg/dL Comment: Interpretive Data Ages < or = 19 years Acceptable: <170 mg/dL Borderline high: 170-199 mg/dL High: >or= 200 mg/dL Ages > or = 20 years Desirable: <200 mg/dL Borderline high: 200-239 mg/dL High: >or= 240 mg/dL Literature References: 1. Expert Panel on Integrated Guidelines for Cardiovascular Health and Risk Reduction in Children and Adolescents. Pediatrics 2011;128:S213 2. NCEP Expert Panel. Circulation 2004;110:227 Current Interpretive Data was last revised on 2017. Triglycerides 181(H) <=149 mg/dL LUIS [facility]U Comment: Interpretive Data Ages < or = 9 years Acceptable: <75 mg/dL Borderline high: 75-99 mg/dL High: >or= 100 mg/dL Ages 10 to 20 years Acceptable: <90 mg/dL Borderline high: 90-129 mg/dL High: >or= 130 mg/dL Ages > or = 20 years Desirable: <150 mg/dL Borderline high: 150-199 mg/dL High: 200-499 mg/dL Very high: >or= 499 mg/dL Literature References: 1. Expert Panel on Integrated Guidelines for Cardiovascular Health and Risk Reduction in Children and Adolescents. Pediatrics 2011;128:S213 2. NCEP Expert Panel. Circulation 2004;110:227 Current Interpretive Data was last revised on 2017. HDL 61 >=40 mg/dL [facility] Comment: Interpretive Data Ages < or = 19 years Acceptable: >45 mg/dL Borderline low: 40-45 mg/dL Low: <40 mg/dL Ages > or = 20 years Desirable: >or= 60 mg/dL Low: <40 mg/dL Literature References: 1. Expert Panel on Integrated Guidelines for Cardiovascular Health and Risk Reduction in Children and Adolescents. Pediatrics 2011;128:S213 2. NCEP Expert Panel. Circulation 2004;110:227 Current Interpretive Data was last revised on 2017. LDL, calculated 116 <=129 mg/dL [facility] Comment: Interpretive Data Ages < or = 19 years Acceptable: <110 mg/dL Borderline high: 110-129 mg/dL High: >or= 130 mg/dL Ages > or = 20 years Optimal: <100 mg/dL Near optimal: 100-129 mg/dL Borderline high: 130-159 mg/dL High: >160 mg/dL Calculated using the Helio LDL-C estimating equation. This equation was implemented on 2023. Prior to this date LDL-C was estimated using the Friedewald equation. Literature References: 1. Expert Panel on Integrated Guidelines for Cardiovascular Health and Risk Reduction in Children and Adolescents. Pediatrics 2011;128:S213 2. NCEP Expert Panel. Circulation 2004;110:227 3. Helio Castillo et al. PARTH Cardiol. 2019July 09;5(5):540-548. doi: 10.1001/jamacardio.2020.0013 Current Interpretive Data was last revised on 2023. Non-HDL Cholesterol 147 mg/dL [facility]IS [facility] Comment: Interpretive Data Ages < or = 19 years Acceptable: <120 mg/dL Borderline high: 120-144 mg/dL High: >145 mg/dL Ages > or = 20 years When triglycerides are >200 mg/dL, Non-HDL cholesterol is a secondary target of therapy with treatment goals that are 30 mg/dL greater than the LDL cholesterol target. Literature References: 1. Expert Panel on Integrated Guidelines for Cardiovascular Health and Risk Reduction in Children and Adolescents. Pediatrics 2011;128:S213 2. NCEP Expert Panel. Circulation 2004;110:227 Current Interpretive Data was last revised on 2017. Chol/HDL ratio 3 LUIS Blood 06/23/2024 4:19 PM CDT 06/23/2024 4:29 PM CDT us Derek Goodrich MD LAB BLOOD ORDERABLES Final Result Performing Organization Address City/State/[place] [address] [address] [place] [address] * (ABNORMAL) Comprehensive metabolic panel (06/23/2024 4:19 PM CDT) Sodium 138 135 - 145 mmol/L Potassium, pl 3.2(L) 3.3 - 4.9 mmol/L [facility] Chloride 98 97 - 110 mmol/L [facility] CO2 28 22 - 32 mmol/L [facility] Anion gap 12 2 - 15 mmol/L [facility] BUN 14 6 - 25 mg/dL [facility] Creatinine 0.75 0.60 - 1.10 mg/dL [facility] Glucose 88 70 - 199 mg/dL [facility] Comment: Interpretive Data Fasting glucose >/= 126 mg/dl is diagnostic for diabetes. Fasting is defined as no caloric intake for at least 8 hours. Fasting glucose between 100 mg/dl to 125 mg/dl is diagnostic of prediabetes. In a patient with classic symptoms of hyperglycemia or hyperglycemic crisis, a random glucose >/= 200 mg/dl is diagnostic for diabetes. In the absence of unequivocal hyperglycemia, results should be confirmed by repeat testing. The classification and Diagnosis of Diabetes Diabetes Care 202; 46: S19-S40. Current interpretive data was last revised 2022. Calcium 9.7 8.5 - 10.3 mg/dL [facility] Bilirubin, total 0.5 0.1 - 1.2 mg/dL [facility] Protein, pl 8.2 6.5 - 8.5 g/dL [facility] Albumin 4.3 3.5 - 5.0 g/dL [facility] Alk phos 67 40 - 130 Units/L [facility] ALT 27 7 - 45 Units/L [facility] AST 27 10 - 45 Units/L [facility] Blood 06/23/2024 4:1 9 PM CDT 06/23/2024 4:29 PM CDT Derek Goodrich MD LAB [place] [address] [address] [place] [address] * Screening Mammogram 2D Bilateral (06/03/2024) SCRIBED BI-RADS 2 Anatomical Region Laterality Modality Breast Bilateral Mammography Historical Provider MD RUVALCABA MAMMO PROCEDURES Edit ed Result - Final * Genital fluid pap smear, thin prep with HPV evaluation (04/29/2023) 04/29/2023 Narrative Derek Goodrich MD - 04/30/2023 NIELM, HPV not performed Historical Provider LAB CYTOLOGY ORDERABLES F inal Result * COLONOSCOPY REPORT (02/22/2016) Anatomical Region Laterality Modality Other Narrative 02/22/2016 Ordered by an unspecified provider. Historical Provider GI PROCEDURE ORDERABLES F inal Result from Last 3 Months or Most Recently Relevant to Health Maintenance Insurance [facility] [employer] [facility] [employer] Advance Directives For more information, please contact: [phone] Documents on File Type Date Recorded Patient Manager Channel Expl anation ADVANCE DIRECTIVE 03/02/2021 9:23 AM Harrison emanuel of Embedded Software Developer-Medical * Full Code (Latest Code Status on File) Date Activated Date Inactivated Comments 02/28/2021 1:48 PM 03/01/2021 11:21 PM Care Teams Weight Analyst Relationship Specialty [place] [id number] [address] PCP - General Family Medicine 12/17/16 Kelsey Ramos MD [address]22 [address] [address] Consulting Physician Gynecology 01/15/17 Raul [place] [address] Consulting Physician Otolaryngology 04/30/22 Thanh Barreto MD [address] [address] Consulting Physician Nephrology 12/27/22 Lata Carrillo NP [facility] [phone] [place] [address] Nurse Practitioner Bariatrics 01/18/23
--- OUTSIDE RECORDS SUMMARY | 2024-09-14 01:17 | XMS_ITS | Encounter Summary ---
Author Organization [facility] Address 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
--- OUTSIDE RECORDS SUMMARY | 2024-09-14 01:17 | XMS_ITS | Encounter Summary ---
Author Organization [facility] Address 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
--- OUTSIDE RECORDS SUMMARY | 2024-09-14 01:17 | XMS_ITS | Encounter Summary ---
Author Organization [facility] Address [address] [place] [address] Care Team Providers Care Gold Frame Assembler Name Role Phone Derek Goodrich MD Primary Care Provide r Kelsey Ramos MD Unavailable [phone] Raul Kate MD Unavailable [phone] Thanh Barreto MD Unavailable [phone] Lata Carrillo NP Unavailable [phone] Encounter Details Date Type Department Care Team (Late st Contact Info) Description 08/24/2024 Results Follow-Up [facility] [address] [facility] [address] [place] [phone] [place] [address] [address] Thyroid Function [place], Hemoglobin A1c, Hepatitis C antibody Blood, Additional followed-up results: 15 Social History Tobacco Use Types Packs/Day Years Used Date Smoking Tobacco: Never Smokeless Tobacco: Never Alcohol Use Standard Drinks/Week Comments Yes 0 [...] on file Legal 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 documented in this encounter Plan of Treatment Not on file documented as of this encounter Visit Diagnoses Not on filedocumented in this encounter Care Teams Gold Frame Assembler Relationship Specialty [place] [address] [address] PCP - General Family Medicine 12/17/16 Kelsey Ramos MD [address] [address] Consulting Physician Gynecology 01/15/17 Raul Kate [place] [address] Consulting Physician Otolaryngology 04/30/22 Thanh Barreto MD [facility] [place] [id number] Consulting Physician Nephrology 12/27/22 Lata Carrillo NP [phone] [place] [address] Nurse Practitioner Bariatrics 01/18/23 documented as of this encounter
--- OUTSIDE RECORDS SUMMARY | 2024-09-14 01:17 | XMS_ITS | Referral Summary ---
Author Organization [facility] Address [address] [place] [id number] Care Team Providers Care Liquor Store Manager Name Role Phone Derek Goodrich MD Primary Care Provide r Kelsey Ramos MD Unavailable [phone] Raul Kate MD Unavailable [phone] Thanh Barreto MD Unavailable [phone] Lata Carrillo NP Unavailable [phone] Encounters Date Type Department Care Team Description 09/03/2024 Orders Only [facility] at [address] [address] ProviderLyndsay MD 08/24/2024 Results Follow-Up [facility] at [address] [address] Derek Goodrich MD Thyroid Function [place], Hemoglobin A1c, Hepatitis C antibody Blood, Additional followed-up results: 15 06/23/2024 4:15 PM CDT Lab [address] [address] Annual physical exam; Goiter; Acquired hypothyroidism; S/P bariatric surgery; Impaired fasting glucose; Vitamin D deficiency; Special screening examination for viral disease; Essential hypertension; Mixed hyperlipidemia 06/23/2024 3:30 PM CDT Office Visit Family Care at [address] [place] [phone] Derek Goodrich MD Annual physical exam (Primary Dx); Essential hypertension; Mixed hyperlipidemia; Impaired fasting glucose; Goiter; Vitamin D deficiency; Vitamin B12 deficiency; Gastroesophageal reflux disease, unspecified whether esophagitis present; Exercise-induced asthma; IUD (intrauterine device) in place; Hormone replacement therapy; Special screening examination for viral disease; S/P bariatric surgery; Subacute cough; Allergic conjunctivitis of both eyes 06/22/2024 Orders Only [facility] at [address] [address] Derek Goodrich MD from Last 3 Months Allergies No known active allergies Medications levonorgestrel [...] 2024 Active progesterone (PROMETRIUM) 200 mg capsule 025 Active estradioL (VIVELLE-DOT) 0.05 mg/24 hr 025 [...] ferritin 08/24/2024 Peripheral vertigo involving right ear Assessment & Plan (05/29/2022 7:54 PM CDT): This seems to be improved. I recommended watchful waiting. I told her to watch her salt intake. We talked about further management with medication but decided to see how things go. She is going to follow up with me if she has any significant symptoms. 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 Assessment & Plan (04/25/2022 8:43 PM 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): I also reviewed her hearing test with [...] (07/20/2020): Added automatically from request for surgery [id number] Assessment & Plan (06/23/2024 10:45 PM CDT): [...] excess calories 02/28/2021 03/08/2022 No diagnosis on [place] I 08/04/202012/22 Morbid obesity (CMS/HCC) 07/20/2020 Abnormal mammogram of right breast 01/20/2018 01/26/2019 Overview (01/20/2018): 01/16/17 - needs 6 month follow-up Iron deficiency anemia 03/28/201607/17 Overview (06/15/2016): Iron deficiency anemia Insulin resistance 11/05/2012 8 Acquired hypothyroidism 07/23/201212/09 Immunizations Immunization Administration Dates Next Due Influenza, [...] Ba.1 10/03/2023 Tdap 01/26/2019 ZOSTER Recombinant 02/06/2020,12/03/2019 Social History Tobacco Use Types Packs/Day Years [...] on file Legal Sex Female 2:05 AM 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 Gender Identity Female 02/27/2022 5:45 AM 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 Sexual Orientation Straight 07/08/2020 8: 57 AM CDT Last Filed Vital Signs Vital Sign Reading Time Taken Comments Blood Pressure 134/89 06/23/2024 3:25 PM CDT Pulse 80 06/23/2024 3:25 PM CDT Temperature 36.9 C (98.4 F) 05/01/2021 2:49 PM 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 Respiratory Rate 18 05/29/2022 4:23 PM CDT Oxygen Saturation 97% 06/23/2024 3:25 PM CDT Inhaled Oxygen Concentration - - Weight 84.8 kg (187 lb) 06/23/2024 3:25 PM CDT Height 157.5 cm (5' 2.01) 06/23/2024 3:25 PM CD T Body Mass Index 34.19 06/23/2024 3:25 PM CDT Plan of Treatment Not on file Procedures Procedure Name Priority Date/Time Associated Diagnosis [...] gran abs 0.02 0.00 - 0.10 K/cumm [facility] Lymphocyte abs 1.95 0.80 - 3.30 K/cumm [facility] Monocyte abs 0.44 0.20 - 0.80 K/cumm [facility] Eosinophil abs 0.06 0.00 - 0.50 K/cumm [facility] Basophil abs 0.02 0.00 - 0.10 K/cumm [facility] Neutrophil pct 53.9 % [facility] Comment: Interpretive Data Percent cell count reference ranges are not reported, since discordance with absolute values may lead to misinterpretation of CBC data. Current Interpretive Data was last revised on 2017. Imm gran pct 0.4 % [facility] Comment: Interpretive Data Percent cell count reference ranges are not reported, since discordance with absolute values may lead to misinterpretation of CBC data. Current Interpretive Data was last revised on 2017. Lymphocyte pct 36.1 % [facility] Comment: Interpretive Data Percent cell count reference ranges are not reported, since discordance with absolute values may lead to misinterpretation of CBC data. Current Interpretive Data was last revised on 2017. Monocyte pct 8.1 % [facility] Comment: Interpretive Data Percent cell count reference ranges are not reported, since discordance with absolute values may lead to misinterpretation of CBC data. Current Interpretive Data was last revised on 2017. Eosinophil pct 1.1 % [facility] Comment: Interpretive Data Percent cell count reference ranges are not reported, since discordance with absolute values may lead to misinterpretation of CBC data. Current Interpretive Data was last revised on 2017. Basophil pct 0.4 % [facility] Comment: Interpretive Data Percent cell count reference ranges are not reported, since discordance with absolute values may lead to misinterpretation of CBC data. Current Interpretive Data was last revised on 2017. Blood 06/23/2024 4:36 PM CDT 06/23/2024 4:36 PM CDT us Derek Goodrich MD LAB BLOOD ORDERABLES Final Result [facility] [address] Department [place] [address] * (ABNORMAL) CBC with auto differential (06/23/2024 4:36 PM CDT) [facility] WBC 5.40 3.80 - 9.90 K/cumm Hgb 12.1 11.9 - 15.5 g/dL [facility] Hct 38.5 35.6 - 45.5 % [facility] Plt 301 150 - 400 K/cumm [facility] MPV 9.6 9.1 - 12.3 fL [facility] RBC 4.63 3.90 - 5.20 M/cumm [facility] MCV 83.2 81.3 - 96.4 fL [facility] MCH 26.1(L) 27.1 - 33.3 pg [facility] MCHC 31.4(L) 32.3 - 35.7 g/dL [facility] RDW CV 15.9(H) 11.1 - 14.9 % [facility] RDW SD 47.9 35.7 - 48.1 fL [facility] NRBC abs 0.00 0.00 - 0.01 K/cumm [facility] Blood 06/23/2024 4:36 PM CDT 06/23/2024 4:36 PM CDT Derek Goodrich MD LAB BLOOD ORDERABLES Final Result [facility] [address] Department [place] [address] * Hemoglobin A1c (06/23/2024 4:36 PM CDT) [facility] Hgb A1C 5.6 4.0 - 5.6 % Estimated Average Glucose 114 mg/dL [facility] Comment: The ADA recommends reporting an estimated Average Glucose (eAG) with all Hemoglobin A1c results using the equation derived from a study of 507 normal and diabetic adults. Minority populations were underrepresented and children were not included. (Diabetes Care 31:2943-9440, 2008). The eAG is not equivalent to a fasting glucose. Blood 06/23/2024 4:36 PM CDT 06/23/2024 4:36 PM CDT Derek Goodrich MD LAB BLOOD ORDERABLES Final Result Performing Organization Address [facility] de Phone Number LUIS [facility] [address] [facility] [place] [address] * eGFR (06/23/2024 4:19 PM CDT) eGFR [...] BLOOD ORDERABLES Final Result Performing Organization Address City/[facility] Co de Phone Number [facility] [address] Department of [facility] [place] [address] * Thyroid Function [place] (06/23/2024 4:19 PM CDT) TSH 1.23 0.30 - 4.20 mcIUnit/mL Blood 06/23/2024 4:19 PM CDT 06/23/2024 4:29 PM CDT Derek Goodrich MD LAB BLOOD ORDERABLES Final Result Performing Organization Address City/[facility]/ZIP Co de Phone Number [facility] [address] [address] [facility] [place] [address] * Iron profile w/ IBC (06/23/2024 4:19 PM CDT) [facility] Iron 77 35 - 145 mcg/dl TIBC 293 250 - 400 mcg/dL [facility] Transferrin saturation 26 20 - 50 % [facility] Blood 06/23/2024 4:19 PM CDT 06/23/2024 4:29 PM CDT Derek Goodrich MD LAB BLOOD ORDERABLES Final Result Performing Organization Address [facility] de Phone Number [facility] [address] [address] [facility] [place] [address] * Hepatitis C antibody Blood (06/23/2024 4:19 PM CDT) [facility] Hep C Ab Nonreactive Nonreactive Comment: Interpretive [...] NERAL ORDERABLES Final Result Performing Organization Address City/[facility] Co de Phone Number [facility] [address] [address] [place] [address] * Hepatitis B core antibody, total Blood (06/23/2024 4:19 PM CDT) [facility] Hep B core IgG/IgM Nonreactive Nonreactive Comment:Testing performed by : [facility], [address] [place]., [address] Blood 06/23/2024 4:19 PM CDT 06/24/2024 10:04 AM CDT Derek Goodrich MD LAB MICROBIOLOGY - GE NERAL ORDERABLES Final Result Performing Organization Address City/[facility]/ZIP Co de Phone Number LUIS [address] [address] [place] [address] * Vitamin D 25 hydroxy (06/23/2024 4:19 PM CDT) Pathologist [facility] [place] Vitamin D 25-OH 69 30 - 80 ng/mL Blood 06/23/2024 4:19 PM CDT 06/23/2024 4:29 PM CDT Derek Goodrich MD LAB BLOOD ORDERABLES Final Result Performing Organization Address [facility] Co de Phone Number [facility]IS [address] [address] [facility] [place] [address] * Hepatitis B surface antibody (immune status) Blood (06/23/2024 4:19 PM CDT) Pathologist [facility] HBsAb (immune status) Reactive Comment: Interpretive Data [...] HBsAb (immune status) index 24.1 mIUnits/m L [facility] Blood 06/23/2024 4:19 PM CDT 06/23/2024 4:29 PM CDT Derek Goodrich MD LAB MICROBIOLOGY - GE NERAL ORDERABLES Final Result Performing Organization Address City/[facility]/ZIP Co de Phone Number [facility] [address] [place] [address] * Hepatitis B Surface Antigen Blood (06/23/2024 4:19 PM CDT) [facility] HepBsAg Nonreactive Nonreactive Blood 06/23/2024 4:19 PM CDT 06/23/2024 4:29 PM CDT Derek Goodrich MD LAB MICROBIOLOGY - GE NERAL ORDERABLES Final Result Performing Organization Address [facility] Co de Phone Number [facility] [address] [address] * Vitamin B1 (06/23/2024 4:19 PM CDT) [facility] Thiamine (Vit B1) 126 70 - 180 nmol/L [place] [facility] Comment: ADDITIONAL INFORMATION This test was developed and its performance characteristics determined by [facility] in a manner consistent with CLIA requirements. This test has not been cleared or approved by the U.S. Food and Drug Administration. Test Performed by: [facility] [place] [address] Art Model: Shree De León Ph.D.; CLIA# [id number] Blood 06/23/2024 4:19 PM CDT 06/23/2024 4:31 PM CDT Derek Goodrich MD LAB BLOOD ORDERABLES Final Result Performing Organization Address City/[facility] Co de Phone Number [facility] [address] [facility] [place] [address] [place] [facility] * PTH (06/23/2024 4:19 PM CDT) [facility] PTH 26 15 - 65 pg/mL Blood 06/23/2024 4:19 PM CDT 06/23/2024 4:29 PM CDT Derek Goodrich MD LAB BLOOD ORDERABLES Final Result Performing Organization Address [facility] Co de Phone Number [facility] [address] [address] [facility] [place] [address] * Folate (06/23/2024 4:19 PM CDT) Folic acid 9.4 >=5.0 ng/mL Comment:Hemolysis present. R esults may be affected. Blood 06/23/2024 4:19 PM CDT 06/23/2024 4:29 PM CDT Derek Goodrich MD LAB BLOOD ORDERABLES Final Result Performing Organization Address [facility] de Phone Number [facility] [address] [address] [facility] [place] [address] * (ABNORMAL) Ferritin (06/23/2024 4:19 PM CDT) Pathologist [facility] Ferritin 301(H) 15 - 150 ng/mL Blood 06/23/2024 4:19 PM CDT 06/23/2024 4:29 PM CDT Derek Goodrich MD LAB BLOOD ORDERABLES Final Result Performing Organization Address [facility] de Phone Number LUIS [address] [address] [facility] [place] [address] * Vitamin B12 (06/23/2024 4:19 PM CDT) Pathologist [facility] Vitamin B12 956 230 - 1,250 pg/mL Blood 06/23/2024 4:19 PM CDT 06/23/2024 4:29 PM CDT Derek Goodrich MD LAB BLOOD ORDERABLES Final Result [facility] [address] [facility] Department [place] [address] * (ABNORMAL) Lipid panel (06/23/2024 4:19 PM [...] LAB BLOOD ORDERABLES Final Result [facility] [address] Department [place] [address] * (ABNORMAL) Comprehensive metabolic panel (06/23/2024 4:19 [...] classification and Diagnosis of Diabetes Diabetes Care 2021; 46: S19-S40. Current interpretive data was last [...] - 45 Units/L [facility] Blood 06/23/2024 4:19 PM CDT 06/23/2024 4:29 PM CDT Derek Goodrich MD LAB BLOOD ORDERABLES Final Result [facility] [address] Department [place] [address] * Screening Mammogram 2D Bilateral (06/03/2024) SCRIBED BI-RADS 2 Anatomical Region Laterality Modality Breast Bilateral Mammography us Historical Provider MD [facility] MAMMO PROCEDURES Edit [...] Most Recently Relevant to Health Maintenance Insurance [facility] [employer] [facility] [employer] Advance Directives For more information, please contact: [phone] Documents on File Type Date Recorded 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 ADVANCE DIRECTIVE 03/02/2021 9:23 AM Harrison emanuel of [employer] * Full Code (Latest Code Status on File) Date Activated Date Inactivated Comments 02/28/2021 1:48 PM 03/01/2021 11:21 PM Care Teams Liquor Store Manager Relationship Specialty [place] [id number] [address] PCP - General Family Medicine 12/17/16 Kelsey Ramos MD [address] [address] Consulting Physician Gynecology 01/15/17 Raul Kate [place] [address] Consulting Physician Otolaryngology 04/30/22 Thanh Barreto MD [address] [facility] [address] [place] [address] Consulting Physician Nephrology 12/27/22 Lata Carrillo NP [phone] [place] [address] Nurse Practitioner Bariatrics 01/18/23
--- NOTE | 2024-09-14 07:48 | WPDHPUPDATE1 ---
History and Physical Update Update Date/Time: 09/14/24 07:48 History and Physical has been reviewed, including an updated exam of the patient. There are NO changes in the patient's condition. Risks, benefits, and alternatives have been discussed and questions answered. Patient agrees to proceed with procedure.
--- NOTE | 2024-09-14 07:51 | WPDHPUPDATE1 ---
History and Physical Update Update Date/Time: 09/14/24 07:51 History and Physical has been reviewed, including an updated exam of the patient. There are NO changes in the patient's condition. Risks, benefits, and alternatives have been discussed and questions answered. Patient agrees to proceed with procedure.
--- NOTE | 2024-09-14 07:51 | PM.HPGS ---
History of Present Illness History of Present Illness Consent: Risks, benefits, and alternatives have been discussed and questions answered. Patient agrees to proceed with procedure. Chief complaint: Displaced IUD / Removal IUD Narrative: Jennifer Mitchell is a 53 year old female who presented to the office for hysteroscopic removal of IUD due to missing strings. The IUD was not visualized with the office hysteroscope. KUB and pelvic ultrasound was performed. Ultrasound shows the uterus to be anteverted and anteflexed. Patient presents today for hysteroscopy for removal of IUD. Risks of infection, bleeding, and perforation are reviewed. Patient voices understanding and agrees to proceed. Review of Systems Review of Systems: not repeated day of surgery; patient states no changes in status PMFSH Past Medical History Medical History (Updated 09/14/24 @ 07:53 by Kelsey Ramos MD) HTN (hypertension) Surgical History Surgical History (Updated 09/14/24 @ 07:53 by Kelsey Ramos MD) History of gastric restrictive surgery Gastric sleeve 02/28 History of bilateral breast reduction surgery History of Social History Social History Smoking status: Never smoker Alcohol intake: current Living arrangements: with family Spiritual care concerns: No Meds Home Medications and Allergies Home Medications ?Medication ?Instructions ?Recorded ?Confirmed ?Type amlodipine 5 mg tablet 5 mg PO DAILY 09/09/24 09/09/24 History berberine chloride 500 mg capsule 500 mg PO DAILY 09/09/24 09/09/24 History chlorthalidone 50 mg tablet 100 mg PO DAILY 09/09/24 09/09/24 History cholecalciferol (vitamin D3) 25 25 mcg PO DAILY 09/09/24 09/09/24 History mcg (1,000 unit) tablet (Vitamin D3) docusate sodium 100 mg capsule 200 mg PO DAILY 09/09/24 09/09/24 History (Colace) fexofenadine 180 mg tablet 180 mg PO DAILY 09/09/24 09/09/24 History fluticasone propionate 50 2 spray intranasal DAILY 09/09/24 09/09/24 History mcg/actuation nasal spray,suspension guar gum 1 gram chewable tablet 3 g PO DAILY 09/09/24 09/09/24 History hawthorn 500 mg capsule 500 mg PO DAILY 09/09/24 09/09/24 History lutein 20 mg capsule 20 mg PO DAILY 09/09/24 09/09/24 History vitamin A 2,500 unit-vit C 100 1 cap PO DAILY 09/09/24 09/09/24 History mg-biotin 2,500 guj-emzq-penovb capsule (Rrbe-Vwgd-Puuc (vit A,T-qeerhs-Rz-Cu)) estradiol 0.05 mg/24 hr semiweekly 1 patch topical .Bi weekly 09/10/24 09/10/24 History transdermal patch progesterone micronized 200 mg 200 mg PO HS 09/10/24 09/10/24 History capsule Allergies Allergy/AdvReac Type Severity Reaction Status Date / Time No Known Allergies Allergy Verified 09/09/24 15:07 Exam Const: General: healthy appearing and alert Orientation/consciousness: patient oriented x3 Resp: Effort & Inspection: normal respiratory effort : External Female Exam: normal external appearance Speculum Exam - Vagina: normal appearance of the vagina and normal vaginal discharge Speculum Exam - Cervix: normal appearance of the cervix Bimanual exam- vagina & uterus: uterine size normal and consistency normal Bimanual Exam- Adnexa, other: normal adnexae and No adnexal tenderness Neuro: General: patient oriented x3 Assessment and Plan Assessment and plan (1) IUD strings lost: Code(s): T83.32XA - Displacement of intrauterine contraceptive device, initial encounter Status: Acute Assessment and Plan: Plan to proceed with hysteroscopic removal of IUD
--- NOTE | 2024-09-14 08:21 | P.PNAN_ITS ---
Anes - Initial Pre Proc Eval Procedure: Operation Date: 09/14/24 09:00 Proposed Procedures p Hysteroscopy with Removal Intrauterine Device - Kelsey Ramos MD Date/Time: 09/14/24 08:21 Surgeon: Kelsey Ramos MD Pre Op Diagnosis: Displaced IUD / Removal IUD Patient Data Age: 53 Gender: F Height: 1.55 m Weight: 84 kg Allergies Allergy/AdvReac Type Severity Reaction Status Date / Time No Known Allergies Allergy Verified 09/09/24 15:07 Home Medications ?Medication ?Instructions ?Recorded ?Confirmed ?Type amlodipine 5 mg tablet 5 mg PO DAILY 09/09/24 09/09/24 History berberine chloride 500 mg capsule 500 mg PO DAILY 09/09/24 09/09/24 History chlorthalidone 50 mg tablet 100 mg PO DAILY 09/09/24 09/09/24 History cholecalciferol (vitamin D3) 25 25 mcg PO DAILY 09/09/24 09/09/24 History mcg (1,000 unit) tablet (Vitamin D3) docusate sodium 100 mg capsule 200 mg PO DAILY 09/09/24 09/09/24 History (Colace) fexofenadine 180 mg tablet 180 mg PO DAILY 09/09/24 09/09/24 History fluticasone propionate 50 2 spray intranasal DAILY 09/09/24 09/09/24 History mcg/actuation nasal spray,suspension guar gum 1 gram chewable tablet 3 g PO DAILY 09/09/24 09/09/24 History hawthorn 500 mg capsule 500 mg PO DAILY 09/09/24 09/09/24 History lutein 20 mg capsule 20 mg PO DAILY 09/09/24 09/09/24 History vitamin A 2,500 unit-vit C 100 1 cap PO DAILY 09/09/24 09/09/24 History mg-biotin 2,500 agm-lcbt-vxrbqx capsule (Pfij-Jsts-Wzni (vit A,Y-vesxxh-Iy-Cu)) estradiol 0.05 mg/24 hr semiweekly 1 patch topical .Bi weekly 09/10/24 09/10/24 History transdermal patch progesterone micronized 200 mg 200 mg PO HS 09/10/24 09/10/24 History capsule Patient hx anesthesia problems: none Family hx anesthesia problems: none Results Review: All pre-operative results and documents have been reviewed as part of the pre- operative evaluation. PMFSH Past Medical History Medical History (Updated 09/14/24 @ 08:22 by Noble Monroe MD) Obesity HTN (hypertension) Surgical History Surgical History History of gastric restrictive surgery Gastric sleeve 02/28 History of bilateral breast reduction surgery History of Social History Social History Smoking status: Never smoker Alcohol intake: current Living arrangements: with family Spiritual care concerns: No Anes - Eval Final PreProcedure Day of Procedure 09/14/24 08:21 Patient weight: obese Heart: regular rate and rhythm Lungs: clear to auscultation Airway: Mallampati scale class II Neurological: alert and oriented Last oral intake: >/= 8 hours ASA classification: III Emergent: no Anesthetic plan: proceed Anesthesia type and monitoring: general GIVS and standard monitoring Results Review: All pre-operative results and documents have been reviewed as part of the pre- operative evaluation. Informed Consent: The patient's anesthetic plan and its attendant risks and benefits were discussed with the patient/family/POA. Questions were solicited and answers provided to the satisfaction of the patient/family/POA.
[2024-09-14 08:25] VITALS: BP 104/56; PULSE 59; RESP 16; TEMP 36.9; O2SAT 100
[2024-09-14] MEDS: LACTATED RINGERS 1,000 ML 30 ML IV CONT (08:25)
[2024-09-14] MEDS: ACETAMINOPHEN 500 MG TABLET 1000 MG PO (08:25)
[2024-09-14 08:40] LABS: Anion Gap 10 mmol/L (4-12); Blood Urea Nitrogen 13 mg/dL (7-17); Calcium 9.4 mg/dL (8.4-10.2); Carbon Dioxide 27 mmol/L (22-30); Chloride 100 mmol/L (98-107); Estimated CRCL calculation 72 ml/min; Estimated Glomerular Filt Rate > 60; Glucose 115 mg/dL (65-110); Potassium 3.2 mmol/L (3.4-5.0); Sodium 137 mmol/L (137-145)
[2024-09-14 09:24] LABS: BEDSIDEPREGUCG Negative (Negative)
--- NOTE | 2024-09-14 09:32 | W.PM.PROC2 ---
Procedure Note - Detailed Date of Procedure 09/14/24 Pre-op Diagnosis Displaced IUD / Removal IUD Post-op Diagnosis Same Procedure Performed Hysteroscopic removal of IUD Surgeon Kelsey Ramos MD Anesthesia MAC Findings Uterus is anteverted and anteflexed. IUD is in the upper fundus in proper position. Strings were pointing upward. Description of Procedure The patient was taken to the operating room and placed under anesthesia in the dorsal lithotomy position. She was prepped and draped in usual sterile fashion. [place] speculum was placed in the vagina and the cervix grasped on the anterior lip with a tenaculum. Uterus sounded to 8cm. The diagnostic hysteroscope was placed and with the above-stated findings graspers were placed through the hysteroscope and grasped the strings. The entire hysteroscope was removed and the IUD started to move but did not, with the camera. The polyp forceps are used and the strings and IUD are noted in the cervix. The IUD was removed intact. The IUD was discarded. The hysteroscope was replaced and the endometrium inspected noted to be grossly normal. All instruments were then removed. The patient was awakened from anesthesia and taken to recovery in stable condition. Sponge, needle, and instrument counts are correct per the OR staff. Estimated Blood Loss 5 Drains No Packing No Pathology Other (IUD discarded) Complications No immediate complications Condition Stable Disposition PACU
[2024-09-14 09:34] VITALS: BP 98/65; PULSE 76; RESP 18; O2SAT 99
[2024-09-14 10:05] VITALS: BP 102/70; PULSE 67; RESP 16
[2024-09-14 10:31] VITALS: BP 121/80; PULSE 75; RESP 18
== END 2024-09-14 10:57 | disposition home or self-care (01) ==
PROVIDERS: Anesthesiology; Visit Provider Obstetrics & Gynecology Gynecology
PROC: 0U5B8ZZ Destruction of Endometrium, Via Natural or Artificial Opening Endoscopic (ICD-10-PCS; CPT 58563; principal; 2024-09-14 09:00)
DX: T83.32XA Displacement of intrauterine contraceptive device, initial encounter (principal); I10 Essential (primary) hypertension; Y83.8 Other surgical procedures as the cause of abnormal reaction of the patient, or of later complication, without mention of misadventure at the time of the procedure; E66.9 Obesity, unspecified; Z68.34 Body mass index [BMI] 34.0-34.9, adult; Z98.890 Other specified postprocedural states; Z98.84 Bariatric surgery status
CPT/HCPCS: 58579; 36415; 80048; A9270; J2003; J2250; J2704; J3010; J7120